=== PATIENT | male | born 1985 | race Caucasian/White ===

== ENCOUNTER 2018-11-21 18:42 | Emergency (ER) | payer SELFPAY ==
[~2018-11-21] VITALS: Ht 177.8 cm; Wt 82.0 kg
[2018-11-21] MEDS ORDERED: ONDANSETRON HCL 4MG/2ML INJ IV STA (19:02)
[2018-11-21] MEDS ORDERED: SODIUM CHLORIDE 0.9% 1,000 ML IV ONE (19:02)
[2018-11-21] MEDS ORDERED: DIAZEPAM 5 MG TABLET PO ONE (19:15)
[2018-11-21] MEDS ORDERED: ETOMIDATE 2MG/ML 10ML VIAL IV ONE (22:30)
[2018-11-21] MEDS ORDERED: MORPHINE SULFATE 4 MG/ML CPJ (NOT FOR IM USE) IV ONE (23:30)
[2018-11-21] MEDS ORDERED: KETOROLAC 30MG/ML VIAL IV ONE (23:30)
[2018-11-21] MEDS ORDERED: ONDANSETRON HCL 4MG/2ML INJ IV ONE (23:30)
[2018-11-22 00:47] VITALS: BP 136/82
== END 2018-11-22 00:37 | disposition short-term general hospital (02) ==
LOC: ER 18:42
DX: S03.03XA Dislocation of jaw, bilateral, initial encounter (principal); X58.XXXA Exposure to other specified factors, initial encounter; Y93.89 Activity, other specified; Y92.89 Other specified places as the place of occurrence of the external cause; Y99.8 Other external cause status
CPT/HCPCS: 21480; 70486; 96374; 96375; 96376; 99152; 99285; J1885; J2270; J2405; J3490; J7030; Z7610

== ENCOUNTER 2021-12-23 05:43 | Emergency (ER) | payer SELFPAY ==
[~2021-12-23] VITALS: Ht 177.8 cm; Wt 100.0 kg
[2021-12-23] MEDS ORDERED: OXYCODONE HCL/ACETAMINOPHEN 5/325MG TABLET PO ONE (07:30)
[2021-12-23] MEDS ORDERED: KETAMINE HCL 50 MG/ML 10ML IV ONE (09:15)
[2021-12-23] MEDS ORDERED: PROPOFOL 200MG/20ML VIAL IV ONE (09:15)
[2021-12-23] MEDS ORDERED: OXYCODONE HCL/ACETAMINOPHEN 5/325MG TABLET PO NR (09:30)
[2021-12-23] MEDS ORDERED: ONDANSETRON HCL 4MG/2ML INJ IV ONE (10:00)
[2021-12-23 11:30] VITALS: BP 117/71
== END 2021-12-23 12:13 | disposition home or self-care (01) ==
LOC: ER 06:08
DX: S03.01XA Dislocation of jaw, right side, initial encounter (principal); X58.XXXA Exposure to other specified factors, initial encounter; Y93.89 Activity, other specified; Y92.89 Other specified places as the place of occurrence of the external cause; Y99.8 Other external cause status
CPT/HCPCS: 21480; 70486; 96374; 99152; 99285; J2405; J2704; J3490

== ENCOUNTER 2022-01-19 10:28 | Emergency (ER) | payer MEDICAID ==
[~2022-01-19] VITALS: Ht 177.8 cm; Wt 91.0 kg
[2022-01-19] MEDS ORDERED: METOCLOPRAMIDE HCL 10MG/2ML VIAL IV STA (11:05)
[2022-01-19] MEDS ORDERED: SODIUM CHLORIDE 0.9% 1,000 ML IV ONE (11:15)
[2022-01-19] MEDS ORDERED: CHLORDIAZEPOXIDE 25MG CAPSULE PO ONE (11:15)
[2022-01-19 11:35] LABS: HEMOGLOBIN. 11.4 g/dL (14.0-18.0); MEAN CORPUSCULAR HEMOGLOBIN 21.8 pg (28.0-32.0); MEAN CORPUSCULAR VOLUME 68.7 fL (80.0-94.0); MEAN PLATELET VOLUME 7.7 fl (7.4-10.4); PLATELET 325 x1000/uL (130-400); RED BLOOD CELL COUNT 5.23 mill/uL (4.7-6.1)
[2022-01-19 11:46] LABS: CHLORIDE 99 mEq/L (98-107)
[2022-01-19 11:55] LABS: ETHANOL BLOOD < 10 mg/dL
[2022-01-19 11:56] LABS: PLATELET ESTIMATE NORMAL
[2022-01-19] MEDS ORDERED: ONDANSETRON HCL 4MG/2ML INJ IV ONE ×2 (12:15)
[2022-01-19 15:00] VITALS: BP 138/82
== END 2022-01-19 15:06 | disposition home or self-care (01) ==
LOC: ER 10:28
DX: M24.49 Recurrent dislocation, other specified joint (principal); R10.84 Generalized abdominal pain; R00.0 Tachycardia, unspecified; F10.10 Alcohol abuse, uncomplicated; Y90.0 Blood alcohol level of less than 20 mg/100 ml
CPT/HCPCS: 36415; 71045; 74176; 80053; 80320; 83690; 84484; 85025; 93005; 96361; 96374; 96375; 99285; J2405; J2765; J7030; G0480

== ENCOUNTER 2023-01-17 15:04 | Emergency (ER) | payer MEDICAID ==
[~2023-01-17] VITALS: Ht 177.8 cm; Wt 96.0 kg
[2023-01-17 15:06] VITALS: BP 120/98; PULSE 120; RESP 18; TEMP 98.1; O2SAT 99
[2023-01-17] MEDS ORDERED: ACETAMINOPHEN 325MG TABLET PO ONE (15:15)
== END 2023-01-17 19:07 | disposition home or self-care (01) ==
LOC: ER 15:04
DX: S03.01XA Dislocation of jaw, right side, initial encounter (principal); Z86.59 Personal history of other mental and behavioral disorders; Z98.890 Other specified postprocedural states; X58.XXXA Exposure to other specified factors, initial encounter; Y93.89 Activity, other specified; Y92.89 Other specified places as the place of occurrence of the external cause; Y99.8 Other external cause status
CPT/HCPCS: 70486; 99284

== ENCOUNTER 2023-12-22 16:59 | Emergency (ER) | payer MEDICAID ==
[~2023-12-22] VITALS: Ht 182.9 cm; Wt 82.0 kg
[2023-12-22 17:00] VITALS: O2SAT 100
[2023-12-22 19:01] VITALS: BP 127/72; PULSE 82; RESP 10; TEMP 98.2
== END 2023-12-22 19:07 ==
LOC: ER 17:49
DX: S03.00XA Dislocation of jaw, unspecified side, initial encounter (principal); M25.512 Pain in left shoulder; M54.2 Cervicalgia; F10.129 Alcohol abuse with intoxication, unspecified; Z86.59 Personal history of other mental and behavioral disorders; Z98.890 Other specified postprocedural states; X58.XXXA Exposure to other specified factors, initial encounter; Y93.89 Activity, other specified; Y92.89 Other specified places as the place of occurrence of the external cause; Y99.8 Other external cause status; Y90.9 Presence of alcohol in blood, level not specified
CPT/HCPCS: 70486; 73030; 99284